=== PATIENT | female | born 1975 | race Caucasian/White ===

== ENCOUNTER 2021-04-06 07:00 | Inpatient (IN) | payer OTHER ==
[~2021-04-06] VITALS: Ht 144.8 cm; Wt 68.0 kg
[~2021-04-06 07:00] MED LIST: TYLENOL-CODEINE1 TAB PO
[2021-04-06] MEDS ORDERED: COZAAR25 MG PO (12:41)
[2021-04-06] MEDS ORDERED: GLUMETZA500 MG PO (12:41)
[2021-04-06] MEDS ORDERED: ATORVASTATIN CA10 MG PO (12:41)
[2021-04-06] MEDS ORDERED: HYDROCHLOROTH12.5 MG PO (12:42)
[2021-04-07] MEDS ORDERED: DICYCLOMINE HCL20 MG (16:15)
[2021-04-07] MEDS ORDERED: FLONASE16 GM (16:16)
[2021-04-07] MEDS ORDERED: ENALAPRIL MALEA10 MG (16:16)
[2021-04-07] MEDS ORDERED: PURELAX510 GM (16:16)
[2021-04-07] MEDS ORDERED: NAPROXEN SODIU550 MG (16:16)
[2021-04-07] MEDS ORDERED: CYCLOBENZAPRINE10 MG (16:16)
== END 2021-04-10 12:23 | disposition home or self-care (01) | DRG 743 ==
LOC: SURH 04-07 07:00 → O/R 04-07 10:34 → OB/GYN 04-07 10:34
PROVIDERS: ADMIT Obstetrics & Gynecology; ATTEND Obstetrics & Gynecology
PROC: 0DNW0ZZ Release Peritoneum, Open Approach (ICD-10-PCS; 2021-04-07)
PROC: 0UT70ZZ Resection of Bilateral Fallopian Tubes, Open Approach (ICD-10-PCS; 2021-04-07)
PROC: 0UT90ZZ Resection of Uterus, Open Approach (ICD-10-PCS; principal; 2021-04-07 16:15)
DX: D25.1 Intramural leiomyoma of uterus (principal); N72 Inflammatory disease of cervix uteri; Z20.822 Contact with and (suspected) exposure to COVID-19